=== PATIENT | male | born 1945 | race Caucasian/White ===

== ENCOUNTER 2021-08-01 13:56 | Inpatient (IN) ==
[2021-08-01] MEDS ORDERED: Isovue-370 500 ML BOTTLE IVP ONE (20:11)
[2021-08-01 20:46] LABS: Basophils % 0.4 %; Eosinophils # 0.1 K/mcL (0.0-0.6); Eosinophils % 1.8 %; Hematocrit 43.2 % (37.5-50.1); Hemoglobin 14.5 g/dL (12.9-16.9); Immature Granulocytes % 0.4 % (0-4); Lymphocytes # 1.3 K/mcL (0.6-4.6); Lymphocytes % 18.2 %; Mean Corpuscular HGB Conc 33.6 g/dL (31.6-35.5); Mean Corpuscular Hemoglobin 29.5 pg (28.0-33.3); Mean Corpuscular Volume 87.8 fL (83.0-100.0); Mean Platelet Volume 11.6 fL (9.4-12.4); Monocytes # 0.6 K/mcL (0.0-1.3); Neutrophils # 5.1 K/mcL (1.6-8.9); Platelet Count 146 K/mcL (140-400); Red Blood Count 4.92 M/mcL (4.19-5.50); Red Cell Distribution Width 12.8 % (11.5-14.5); Segmented Neutrophils % 71.2 %; White Blood Count 7.2 K/mcL (4.3-11.1)
[2021-08-01 20:56] LABS: INR 1.4; Prothrombin Time 15.2 Seconds (9.4-12.1)
[2021-08-01 20:58] LABS: Activated Partial Thrombo Time 33.4 Seconds (26.0-36.0)
[2021-08-01 21:07] LABS: Alanine Aminotransferase 9 Units/L (7-52); Albumin 4.5 g/dL (3.5-5.7); Albumin/Globulin Ratio 1.6 (1.1-2.2); Alkaline Phosphatase 91 Units/L (34-104); Aspartate Amino Transferase 12 Units/L (13-39); BUN/Creatinine Ratio 15 (6-26); Bilirubin,Total 0.6 mg/dL (0.3-1.0); Blood Urea Nitrogen 12 mg/dL (8-23); Calcium 9.8 mg/dL (8.6-10.3); Carbon Dioxide 30 mEq/L (23-29); Chloride 103 mEq/L (98-107); Globulin 2.8 g/dL (2.4-3.5); Glucose 101 mg/dL (70-105); Magnesium 2.2 mg/dL (1.6-2.6); Osmolality,Calculated 292 (280-300); Potassium 3.8 mEq/L (3.5-5.1); Sodium 141 mEq/L (136-145); Total Protein 7.3 g/dL (6.4-8.9); Troponin I 0.08 ng/mL (< 0.04); eGFR For African Americans > 60 (> 60); eGFR For Non-African Americans > 60 (> 60)
[2021-08-01] MEDS ORDERED: Gadolinium Contrast Agent (WT Based) IV PRN (23:21)
[2021-08-01 23:29] LABS: Bilirubin,Urine Negative (Negative); Blood,Urine Negative (Negative); Clarity,Urine Clear (Clear); Color,Urine Light-Yellow (Yellow); Glucose,Urine (UA) Normal (Normal); Ketones,Urine Negative (Negative); Leukocyte Esterase,Urine Negative (Negative); Nitrite,Urine Negative (Negative); PH,Urine 6.5 pH Units (5.0-8.0); Protein,Urine Trace mg/dL (Neg-Trace); Specific Gravity,Urine > 1.030 (1.010-1.025); Urobilinogen,Urine Normal (Normal)
[2021-08-02] MEDS ORDERED: Aspirin 81 MG TAB.CHEW PO ONE (01:15)
[2021-08-02] MEDS ORDERED: Naloxone 0.4 MG/ML INJ IVP PRN (01:51)
[2021-08-02] MEDS ORDERED: *HR* OxyCODONE Immed Rel 5 MG TABLET PO PRN (01:51)
[2021-08-02] MEDS ORDERED: Melatonin 3 MG TABLET PO PRN (01:51)
[2021-08-02] MEDS ORDERED: *HR* HYDROcodone/Acet 5/325 mg TABLET PO PRN (01:51)
[2021-08-02] MEDS ORDERED: Acetaminophen 325 MG TABLET PO PRN (01:51)
[2021-08-02] MEDS ORDERED: Ondansetron ODT 4 MG TAB.RAPDIS SL PRN (01:51)
[2021-08-02] MEDS ORDERED: *HR* Dextrose 50 % in Water (Syg) 50 ML SYRINGE IVP PRN (02:24)
[2021-08-02] MEDS ORDERED: D5% in Water 1,000 ML IVC PRN (02:24)
[2021-08-02] MEDS ORDERED: Dextrose 4 GM Chewable Tablets PO PRN ×2 (02:24)
[2021-08-02] MEDS: 0.9 % Sodium Chloride 1,000 ML IVC SCH ×2 (02:57→20:47)
[2021-08-02 05:36] LABS: BUN/Creatinine Ratio 13 (6-26); Blood Urea Nitrogen 10 mg/dL (8-23); Calcium 9.3 mg/dL (8.6-10.3); Carbon Dioxide 28 mEq/L (23-29); Chloride 104 mEq/L (98-107); Cholesterol 121 mg/dL (< 200); Glucose 113 mg/dL (70-105); HDL Cholesterol 30 mg/dL (40-59); LDL Cholesterol,Calculated 72 mg/dL (< 100); Osmolality,Calculated 290 (280-300); Phosphorous 3.3 mg/dL (2.7-4.5); Potassium 3.5 mEq/L (3.5-5.1); Sodium 140 mEq/L (136-145); Triglycerides 94 mg/dL (< 150); eGFR For African Americans > 60 (> 60); eGFR For Non-African Americans > 60 (> 60)
[2021-08-02 05:39] LABS: Hematocrit 38.5 % (37.5-50.1); Hemoglobin 13.2 g/dL (12.9-16.9); Immature Platelets 7.5 % (1.1-6.1); Mean Corpuscular HGB Conc 34.3 g/dL (31.6-35.5); Mean Corpuscular Hemoglobin 29.5 pg (28.0-33.3); Mean Corpuscular Volume 85.9 fL (83.0-100.0); Red Blood Count 4.48 M/mcL (4.19-5.50); Red Cell Distribution Width 12.6 % (11.5-14.5); White Blood Count 6.5 K/mcL (4.3-11.1)
[2021-08-02 06:23] LABS: Estimated Average Glucose 131 mg/dl; Hemoglobin A1C 6.2 %
[2021-08-02] MEDS: Insulin LISPRO 300 UNITS/3 ML VIAL SUBQ SCH ×4 (07:13→20:40)
[2021-08-02] MEDS ORDERED: Aspirin 81 MG TAB.CHEW PO SCH (09:00)
[2021-08-02] MEDS ORDERED: GADOBUTROL 30 MMOL/30 ML VIAL IVP ONE (09:32)
[2021-08-02] MEDS ORDERED: Perflutren Lipid Microsphere 1.3 ML in 0.9 % Sodium Chloride 8.7 ML IVP PRN (13:04)
[2021-08-02] MEDS ORDERED: Isovue-370 500 ML BOTTLE IVP ONE (18:25)
[2021-08-03] MEDS: Insulin LISPRO 300 UNITS/3 ML VIAL SUBQ SCH ×4 (08:34→20:24)
[2021-08-03 09:54] LABS: BUN/Creatinine Ratio 11 (6-26); Blood Urea Nitrogen 8 mg/dL (8-23); Calcium 9.2 mg/dL (8.6-10.3); Carbon Dioxide 25 mEq/L (23-29); Chloride 104 mEq/L (98-107); Glucose 182 mg/dL (70-105); Magnesium 1.9 mg/dL (1.6-2.6); Osmolality,Calculated 289 (280-300); Phosphorous 3.4 mg/dL (2.7-4.5); Potassium 3.5 mEq/L (3.5-5.1); Sodium 138 mEq/L (136-145); eGFR For African Americans > 60 (> 60); eGFR For Non-African Americans > 60 (> 60)
[2021-08-03] MEDS: Aspirin 325 MG TABLET PO SCH (11:00)
[2021-08-03] MEDS ORDERED: ALPRAZolam 0.25 MG TABLET PO ONE (14:15)
[2021-08-03] MEDS ORDERED: Diclofenac Sodium [Arthritis Pain] 100 GM Gel..Gram TP PRN (14:16)
[2021-08-03] MEDS ORDERED: methocarbamoL 500 MG TABLET PO PRN (14:16)
[2021-08-03] MEDS: *HR* Heparin 5,000 UNIT/ML VIAL SQ SCH (17:12)
[2021-08-03] MEDS ORDERED: diazePAM 5 MG TABLET PO SCH (21:00)
[2021-08-04] MEDS: *HR* Heparin 5,000 UNIT/ML VIAL SQ SCH (06:03)
[2021-08-04] MEDS ORDERED: Levothyroxine 25 MCG TABLET PO SCH (06:30)
[2021-08-04] MEDS: Insulin LISPRO 300 UNITS/3 ML VIAL SUBQ SCH ×3 (08:22→17:11)
[2021-08-04] MEDS: Aspirin 325 MG TABLET PO SCH (08:23)
[2021-08-04] MEDS ORDERED: Magnesium Oxide 400 MG TABLET PO SCH (09:00)
[2021-08-04] MEDS ORDERED: Cholecalciferol (D-3) 1,000 UNIT (25MCG) TABLET PO SCH (09:00)
[2021-08-04] MEDS ORDERED: *HR* FentaNYL (PF) 100 MCG/2 ML VIAL IVP PRN (10:24)
[2021-08-04] MEDS ORDERED: Lidocaine Viscous Oral Soln 15 ML SOLUTION MM PRN (10:24)
[2021-08-04] MEDS ORDERED: *HR* Midazolam HCl 5 MG/5 ML VIAL IVP PRN (10:25)
[2021-08-04] MEDS ORDERED: 0.9 % Sodium Chloride 500 ML IVC ONE (10:25)
[2021-08-04 15:53] VITALS: BP 119/68; PULSE 57; TEMP 97.8; O2SAT 96
== END 2021-08-04 18:23 | disposition home or self-care (01) | DRG 65 ==
LOC: EMEROOARM 13:56 → 2ANU 13:56 → SUATTDRO 08-02 01:44 → 2ANU 08-02 02:28
PROVIDERS: ADMIT Internal Medicine; ATTEND Internal Medicine

== ENCOUNTER 2022-01-17 17:51 | Inpatient (IN) ==
[2022-01-17] MEDS ORDERED: Iopamidol - 370 500 ML MLS IVP ONE (17:59)
[2022-01-17 18:31] LABS: Hematocrit 41.5 % (37.5-50.1); Hemoglobin 13.9 g/dL (12.9-16.9); Immature Platelets 7.6 % (1.1-6.1); Mean Corpuscular HGB Conc 33.5 g/dL (31.6-35.5); Mean Corpuscular Volume 83.5 fL (83.0-100.0); Mean Platelet Volume 11.4 fL (9.4-12.4); Red Blood Count 4.97 M/mcL (4.19-5.50); Red Cell Distribution Width 13.6 % (11.5-14.5); White Blood Count 10.9 K/mcL (4.3-11.1)
[2022-01-17 18:32] LABS: INR 1.3
[2022-01-17 18:35] LABS: Activated Partial Thrombo Time 30.4 Seconds (26.0-36.0)
[2022-01-17 18:49] LABS: BUN/Creatinine Ratio 22 (6-26); Blood Urea Nitrogen 16 mg/dL (8-23); Calcium 9.6 mg/dL (8.6-10.3); Carbon Dioxide 26 mEq/L (23-29); Chloride 102 mEq/L (98-107); Glucose 142 mg/dL (70-105); Osmolality,Calculated 286 (280-300); Potassium 3.9 mEq/L (3.5-5.1); Sodium 136 mEq/L (136-145); Troponin I < 0.03 ng/mL (< 0.04)
[2022-01-17] MEDS ORDERED: Naloxone 0.4 MG/ML INJ IVP PRN (20:49)
[2022-01-17] MEDS ORDERED: Ondansetron ODT 4 MG TAB.RAPDIS SL PRN (20:49)
[2022-01-17] MEDS ORDERED: Acetaminophen 325 MG TABLET PO PRN (20:49)
[2022-01-17] MEDS ORDERED: Melatonin 3 MG TABLET PO PRN (20:49)
[2022-01-17] MEDS ORDERED: *HR* Dextrose 50 % in Water (Syg) 50 ML SYRINGE IVP PRN (21:43)
[2022-01-17] MEDS ORDERED: Dextrose Gel 15 GM/37.5 ML TUBE PO PRN ×2 (21:43)
[2022-01-17] MEDS ORDERED: D5% in Water 1,000 ML IVC PRN (21:43)
[2022-01-18] MEDS: Insulin LISPRO 300 UNITS/3 ML VIAL SUBQ SCH ×4 (01:14→18:13)
[2022-01-18 04:09] LABS: Hemoglobin 13.3 g/dL (12.9-16.9)
[2022-01-18 04:11] LABS: Hematocrit 39.7 % (37.5-50.1); Immature Platelets 8.7 % (1.1-6.1); Mean Corpuscular HGB Conc 33.5 g/dL (31.6-35.5); Mean Corpuscular Hemoglobin 28.3 pg (28.0-33.3); Mean Corpuscular Volume 84.5 fL (83.0-100.0); Mean Platelet Volume 11.8 fL (9.4-12.4); Red Blood Count 4.7 M/mcL (4.19-5.50); Red Cell Distribution Width 13.8 % (11.5-14.5); White Blood Count 9.7 K/mcL (4.3-11.1)
[2022-01-18 04:18] LABS: INR 1.3; Prothrombin Time 14.1 Seconds (9.4-12.1)
[2022-01-18 04:25] LABS: Estimated Average Glucose 114 mg/dl; Hemoglobin A1C 5.6 %
[2022-01-18 04:27] LABS: Magnesium 1.8 mg/dL (1.6-2.6); Phosphorous 3.3 mg/dL (2.7-4.5)
[2022-01-18 04:33] LABS: Alanine Aminotransferase 9 Units/L (7-52); Albumin 4.4 g/dL (3.5-5.7); Alkaline Phosphatase 76 Units/L (34-104); Aspartate Amino Transferase 14 Units/L (13-39); BUN/Creatinine Ratio 19 (6-26); Blood Urea Nitrogen 14 mg/dL (8-23); Calcium 9.5 mg/dL (8.6-10.3); Carbon Dioxide 26 mEq/L (23-29); Chloride 105 mEq/L (98-107); Chol/HDL Ratio 3.6 (0-4.9); Cholesterol 138 mg/dL (< 200); Globulin 2.2 g/dL (2.4-3.5); Glucose 126 mg/dL (70-105); HDL Cholesterol 38 mg/dL (40-59); LDL Cholesterol,Calculated 80 mg/dL (< 100); Osmolality,Calculated 274 (280-300); Potassium 3.8 mEq/L (3.5-5.1); Sodium 131 mEq/L (136-145); Total Protein 6.6 g/dL (6.4-8.9); Triglycerides 100 mg/dL (< 150); Troponin I < 0.03 ng/mL (< 0.04)
[2022-01-18 04:44] LABS: Thyroid Stimulating Hormone 2.583 mcIU/mL (0.340-5.600)
[2022-01-18 04:53] LABS: Folate 17.5 ng/mL (3.0-16.0)
[2022-01-18] MEDS ORDERED: Aspirin 81 MG TAB.CHEW PO STA (06:16)
[2022-01-18] MEDS ORDERED: *HR* Vasopressin 20 UNIT/ML VIAL ONE (06:25)
[2022-01-18] MEDS ORDERED: DOBUTamine 1,000 MG/250 ML BAG ONE (06:25)
[2022-01-18] MEDS ORDERED: NiCARdipine 2.5 MG/10 ML Syringe IVPB ONE (06:25)
[2022-01-18] MEDS: Chlorhexidine Rinse 15 ML MOUTHWASH MM SCH ×2 (06:29→20:17)
[2022-01-18] MEDS: Clindamycin 900 MG/50 ML 900 MG/50 ML IV.SOLN IVPB ONE ×2 (06:29→11:10)
[2022-01-18] MEDS ORDERED: *HR* FentaNYL (PF) 250 MCG/5 ML VIAL ONE (06:31)
[2022-01-18] MEDS ORDERED: *HR* Midazolam HCl 5 MG/5 ML VIAL IVP ONE (06:31)
[2022-01-18] MEDS ORDERED: EPHEDrine sulfate 50 MG/10 ML VIAL IVP ONE (06:32)
[2022-01-18] MEDS ORDERED: niCARdipine 20 MG/200 ML MLS IVC ONE (06:33)
[2022-01-18] MEDS ORDERED: *HR* Rocuronium Bromide 50 MG/5 ML VIAL ONE (06:33)
[2022-01-18] MEDS ORDERED: *HR* Norepinephrine 4 MG/4 ML VIAL IVC ONE (06:33)
[2022-01-18] MEDS ORDERED: *HR* Etomidate 20 MG/10 ML AMPUL IVP ONE (06:35)
[2022-01-18] MEDS ORDERED: Tranexamic Acid 1,000 MG/10 ML VIAL ONE (06:35)
[2022-01-18] MEDS ORDERED: Protamine Sulfate 250 MG/25 ML VIAL IVP ONE (06:38)
[2022-01-18] MEDS ORDERED: Iopamidol - 300 50 ML VIAL ONE (06:39)
[2022-01-18] MEDS ORDERED: Heparin 1,000 UNITS/500 mL 500 ML ONE (10:55)
[2022-01-18] MEDS ORDERED: Vancomycin 1,250 MG/262.5 ML IV.SOLN IVPB ONE (11:00)
[2022-01-18 11:10] LABS: ABG Base Excess -1 mEq/L (-2 to 3); ABG Chloride 101 mEq/L (98-107); ABG Glucose 126 mg/dL (60-95); ABG HCO3 25 mEq/L (21-27); ABG Ionized Calcium 1.24 mmol/L (1.15-1.35); ABG Oxygen Saturation 100 % (95-98); ABG PCO2 45 mmHg (35-45); ABG PH 7.36 pH Units (7.32-7.45); ABG PO2 447 mmHg (85-104); ABG TCO2 27 mEq/L (20-26)
[2022-01-18] MEDS ORDERED: Naloxone 0.4 MG/ML INJ ONE ×2 (12:26)
[2022-01-18] MEDS ORDERED: Ondansetron 4 MG/2 ML VIAL IVP PRN (12:55)
[2022-01-18] MEDS ORDERED: *HR* Phenylephrine 10 MG/ML VIAL IVC ONE (16:46)
[2022-01-18] MEDS ORDERED: *HR* Magnesium Sulfate 2 GM/50 ML PIGGYBACK IVPB ONE (16:46)
[2022-01-18] MEDS ORDERED: Lidocaine 2% Syringe 100 MG/5 ML IVP ONE (16:46)
[2022-01-18] MEDS ORDERED: *HR* Heparin 10,000 UNIT/10 ML VIAL IR ONE (16:46)
[2022-01-18] MEDS ORDERED: Mannitol 25% vial 12.5 GM/50 ML VIAL IVPB ONE (16:46)
[2022-01-19 02:19] LABS: BUN/Creatinine Ratio 22 (6-26); Blood Urea Nitrogen 16 mg/dL (8-23); Calcium 9.3 mg/dL (8.6-10.3); Carbon Dioxide 27 mEq/L (23-29); Chloride 101 mEq/L (98-107); Glucose 114 mg/dL (70-105); Magnesium 1.8 mg/dL (1.6-2.6); Osmolality,Calculated 282 (280-300); Phosphorous 3.7 mg/dL (2.7-4.5); Potassium 3.8 mEq/L (3.5-5.1); Sodium 135 mEq/L (136-145)
[2022-01-19 02:20] LABS: Basophils % 0.3 %; Eosinophils % 0.1 %; Immature Granulocytes % 0.4 % (0-4)
[2022-01-19 02:21] LABS: Hematocrit 37.5 % (37.5-50.1); Hemoglobin 12.6 g/dL (12.9-16.9); Immature Platelets 9.4 % (1.1-6.1); Lymphocytes # 0.5 K/mcL (0.6-4.6); Lymphocytes % 6.3 %; Mean Corpuscular HGB Conc 33.6 g/dL (31.6-35.5); Mean Corpuscular Hemoglobin 28.3 pg (28.0-33.3); Mean Corpuscular Volume 84.3 fL (83.0-100.0); Mean Platelet Volume 12.1 fL (9.4-12.4); Monocytes # 0.9 K/mcL (0.0-1.3); Monocytes % 12.8 %; Neutrophils # 5.7 K/mcL (1.6-8.9); Red Blood Count 4.45 M/mcL (4.19-5.50); Red Cell Distribution Width 13.8 % (11.5-14.5); Segmented Neutrophils % 80.1 %; White Blood Count 7.1 K/mcL (4.3-11.1)
[2022-01-19 02:31] LABS: Platelet Count 82 K/mcL (140-400)
[2022-01-19] MEDS: Insulin LISPRO 300 UNITS/3 ML VIAL SUBQ SCH ×5 (02:31→23:05)
[2022-01-19] MEDS ORDERED: methocarbamoL 500 MG TABLET PO PRN (09:04)
[2022-01-19] MEDS: Levothyroxine 25 MCG TABLET PO SCH (10:13)
[2022-01-19] MEDS: Apixaban 5 MG TABLET PO SCH ×2 (10:14→20:43)
[2022-01-19] MEDS ORDERED: diazePAM 5 MG TABLET PO SCH (21:00)
[2022-01-19] MEDS ORDERED: SIMVASTATIN PO SCH (21:00)
[2022-01-19 21:24] VITALS: O2SAT 93
[2022-01-19 22:09] LABS: Adenovirus Not Detected (Not Detect); Coronavirus 229E Not Detected (Not Detect); Coronavirus HKU1 Not Detected (Not Detect); Coronavirus NL63 Not Detected (Not Detect); Coronavirus OC43 Not Detected (Not Detect)
[2022-01-19 22:10] LABS: Bordetella Pertussis Not Detected (Not Detect); Chlamydophila pneumoniae Not Detected (Not Detect); Human Metapneumovirus Not Detected (Not Detect); Human Rhinovirus/Enterovirus Not Detected (Not Detect); Influenza A Subtype 2009 H1 Not Detected (Not Detect); Influenza B Not Detected (Not Detect); Mycoplasma pneumoniae Not Detected (Not Detect); Parainfluenza Virus 1 Not Detected (Not Detect); Parainfluenza Virus 2 Not Detected (Not Detect); Parainfluenza Virus 3 Not Detected (Not Detect); Parainfluenza Virus 4 Not Detected (Not Detect); Respiratory Syncytial Virus Not Detected (Not Detect); SARS-CoV-2 DETECTED (Not Detect)
[2022-01-19 23:08] LABS: Amorphous Sediment,Urine Few per hpf (None-Few); Bacteria,Urine Few per hpf (None-Few); Bilirubin,Urine Negative (Negative); Blood,Urine Large (Negative); Clarity,Urine Clear (Clear); Color,Urine Yellow (Yellow); Glucose,Urine (UA) Normal (Normal); Ketones,Urine 20 mg/dL (Negative); Leukocyte Esterase,Urine Negative (Negative); Mucus,Urine Few per lpf (None-Few); Nitrite,Urine Negative (Negative); Protein,Urine Trace mg/dL (Neg-Trace); RBC,Urine 0-3 per hpf (0-3); Specific Gravity,Urine 1.026 (1.010-1.025); Urobilinogen,Urine Normal (Normal); WBC,Urine 0-3 per hpf (0-3)
[2022-01-20] MEDS: Levothyroxine 25 MCG TABLET PO SCH (06:11)
[2022-01-20] MEDS: Insulin LISPRO 300 UNITS/3 ML VIAL SUBQ SCH ×2 (07:46→11:36)
[2022-01-20] MEDS: Apixaban 5 MG TABLET PO SCH (07:57)
[2022-01-20 08:00] VITALS: BP 160/75; PULSE 59; TEMP 97.8
[2022-01-20] MEDS ORDERED: Insulin LISPRO 300 UNITS/3 ML VIAL SUBQ SCH (21:00)
== END 2022-01-20 12:45 | disposition home or self-care (01) | DRG 69 ==
LOC: 3BNU 17:51 → EMEROOARM 17:51 → SUATTDRO 20:39 → 3BNU 21:37 → SUATTDRO 01-18 11:43 → 3BNU 01-19 22:17
PROVIDERS: ADMIT Internal Medicine; ATTEND Registered Nurse